=== PATIENT | female | born 1950 | race Caucasian/White ===

== ENCOUNTER → 2017-10-03 09:26 | Outpatient (CLI) | payer MEDICARE, OTHER ==
[2016-05-06 06:18] VITALS: BMI 34.7
[~2017-10-03 09:26] MED LIST: BENADRYL25 MG PO; FLUTICASONE PRO16 GM NASAL; KLONOPIN1 MG PO; MOBIC7.5 MG PO; MULTI-DAY VITAM1 TAB PO; NORCO 7.5/325 T1 TA1; NORCO 7.5/325 T1 TA1 PO; NORVASC5 MG PO; OMEPRAZOLE20 M1 PO; PROZAC40 MG PO; VICTOZA0.6 MG/0.1 SQ; VITAMIN D5000 UNIT PO; ZOCOR10 MG PO
== END | disposition home or self-care (01) ==
LOC: D.CT 09:26
DX: J18.9 Pneumonia, unspecified organism (principal)

== ENCOUNTER → 2017-10-06 21:47 | Outpatient (CLI) | payer MEDICARE, OTHER ==
[2016-05-06 06:18] VITALS: BMI 34.7
== END | disposition home or self-care (01) ==
LOC: D.MAMMO 10:45
DX: Z12.31 Encounter for screening mammogram for malignant neoplasm of breast (principal)

== ENCOUNTER → 2017-10-26 20:33 | Outpatient (CLI) | payer MEDICARE, OTHER ==
[2016-05-06 06:18] VITALS: BMI 34.7
== END | disposition home or self-care (01) ==
LOC: D.MAMMO 10:30
DX: R92.8 Other abnormal and inconclusive findings on diagnostic imaging of breast (principal)

== ENCOUNTER → 2018-11-20 18:01 | Outpatient (CLI) | payer MEDICARE, OTHER ==
[2016-05-06 06:18] VITALS: BMI 34.7
== END | disposition home or self-care (01) ==
LOC: D.MAMMO 13:45
PROVIDERS: ATTEND Family Medicine
DX: Z12.31 Encounter for screening mammogram for malignant neoplasm of breast (principal)

== ENCOUNTER 2018-12-12 19:00 | Outpatient (CLI) | payer MEDICARE, OTHER ==
[2016-05-06 06:18] VITALS: BMI 34.7
== END 2018-12-12 23:59 | disposition home or self-care (01) ==
LOC: D.MAMMO 19:00
PROVIDERS: ATTEND Family Medicine
DX: R92.8 Other abnormal and inconclusive findings on diagnostic imaging of breast (principal)

== ENCOUNTER 2019-06-14 09:00 | Outpatient (CLI) | payer MEDICARE, OTHER ==
[2016-05-06 06:18] VITALS: BMI 34.7
== END 2019-06-14 10:00 | disposition home or self-care (01) ==
LOC: D.MAMMO 09:00
PROVIDERS: ATTEND Family Medicine
DX: R92.8 Other abnormal and inconclusive findings on diagnostic imaging of breast (principal)

== ENCOUNTER 2020-09-29 14:45 | Outpatient (CLI) | payer MEDICARE, OTHER ==
[2016-05-06 06:18] VITALS: BMI 34.7
== END 2020-09-29 23:59 | disposition home or self-care (01) ==
LOC: D.MAMMO 14:45
PROVIDERS: ATTEND Family Medicine
DX: Z12.31 Encounter for screening mammogram for malignant neoplasm of breast (principal)